=== PATIENT | female | born 1990 | race Caucasian/White ===

== ENCOUNTER 2020-06-30 15:22 | Emergency (ER) | payer BC ==
[~2020-06-30] VITALS: Ht 188 cm; Wt 121.8 kg
--- NOTE | 2020-06-30 15:33 | PHYS DOC ---
General Adult EDM: Chief Complaint: ALLERGIC REACTION HPI: HPI: Patient is a 30-year-old female who presented to ER due to itching and swelling after she ate some sushi today for lunch. Patient has history of allergic to shrimp. Patient did take 50 mg of Benadryl at home before she came. Patient denies any trouble breathing, denies any swelling in her throat. Patient has history of diabetic and hypertension. Patient had run out of her Metformin which she takes 500 mg twice a day, out of of her blood pressure medication, Norvasc 10 mg daily, lisinopril 40 mg daily. Patient has been out of these medications for 1 and half month. Patient denies any chest pain, no abdominal pain, no nausea vomiting. Patient denies any trouble breathing. Review of Systems: Review of Systems: Constitutional: Denies fever or chills Eyes: Denies change in visual acuity HENT: Denies nasal congestion or sore throat Respiratory: Denies cough or shortness of breath Cardiovascular: Denies chest pain or edema GI: Denies abdominal pain, nausea, vomiting, bloody stools or diarrhea : Denies dysuria Musculoskeletal: Denies back pain or joint pain Integument: Positive for itchy and rash. Neurologic: Denies headache, focal weakness or sensory changes Endocrine: Denies polyuria or polydipsia Lymphatic: Denies swollen glands Psychiatric: Denies depression or anxiety Physical Exam: PE: Constitutional: Well developed, well nourished, no acute distress, non-toxic appearance. [] HENT: Normocephalic, atraumatic, bilateral external ears normal, oropharynx m oist, no oral exudates, nose normal. No angioedema Eyes: PERRLA, EOMI, conjunctiva normal, no discharge. [] Neck: Normal range of motion, no tenderness, supple, no stridor. [] Cardiovascular:Heart rate regular rhythm, no murmur [] Lungs & Thorax: Bilateral breath sounds clear to auscultation [] Abdomen: Bowel sounds normal, soft, no tenderness, no masses, no pulsatile masses. [] Skin: Warm, dry, diffuse rash on extremities and trunk area Back: No tenderness, no CVA tenderness. [] Extremities: No tenderness, no cyanosis, no clubbing, ROM intact, no edema. [] Neurologic: Alert and oriented X 3, normal motor function, normal sensory function, no focal deficits noted. [] Psychologic: Affect normal, judgement normal, mood normal. [] Current Patient Data: Labs: Laboratory Tests Test 06/30/20 15:57 Glucose (Fingerstick) 273 mg/dL Current Medications Medications (Trade) Dose Ordered Sig/Alessandra Route PRN Reason Start Time Stop Time Status Last Admin Dose Admin Methylprednisolone Sodium Succinate (SOLU-Medrol 125MG VIAL) 125 mg 1X ONCE IV 06/30/20 15:45 06/30/20 15:46 DC 06/30/20 15:52 Diphenhydramine HCl (Benadryl) 25 mg 1X ONCE IVP 06/30/20 15:45 06/30/20 15:46 DC 06/30/20 15:50 Famotidine (Pepcid Vial) 20 mg 1X ONCE IVP 06/30/20 15:45 06/30/20 15:46 DC 06/30/20 15:54 Sodium Chloride 1,000 ml @ 1,000 mls/hr 1X ONCE IV 06/30/20 15:45 06/30/20 16:44 DC Epinephrine HCl (EPINEPHrine AMPULE) 0.3 mg 1X ONCE IM 06/30/20 15:45 06/30/20 15:46 DC 06/30/20 15:55 Amlodipine Besylate (Norvasc) 10 mg 1X ONCE PO 06/30/20 16:15 06/30/20 16:16 DC 06/30/20 16:33 Lisinopril (Prinivil) 40 mg 1X ONCE PO 06/30/20 16:15 06/30/20 16:16 DC 06/30/20 16:33 EKG: EKG: [] Radiology/Procedures: Radiology/Procedures: [] Heart Score: Risk Factors: Risk Factors: DM, Current or recent (<one month) smoker, HTN, HLP, family history of CAD, obesity. Risk Scores: Score 0 - 3: 2.5% MACE over next 6 weeks - Discharge Home Score 4 - 6: 20.3% MACE over next 6 weeks - Admit for Clinical Observation Score 7 - 10: 72.7% MACE over next 6 weeks - Early Invasive Strategies Course & Med Decision Making: Course & Med Decision Making Pertinent Labs and Imaging studies reviewed. (See chart for details) Patient is a 30-year-old female who was evaluated in ER due to allergic reaction to seafood. Patient was given medication in the ER she felt much better, she wanted to go home. Patient ran out of her blood pressure medication and her diabetic medication. Her blood pressure was elevated in the ER, her blood sugar was elevated as well. Patient was given lisinopril and Norvasc in ER. Patient will be discharged home with a prescription for her blood pressure medication and her diabetic medication. She will need to follow-up with her family physician in a couple day for reevaluation. Patient was instructed not to eat any more seafood in the future. Dragon Disclaimer: Dragon Disclaimer: This electronic medical record was generated, in whole or in part, using a voice recognition dictation system. Departure Departure: Impression: Primary Impression: Allergic reaction Additional Impressions: Hypertension Hyperglycemia Medication refill Disposition: 01 DC HOME SELF CARE/HOMELESS Condition: IMPROVED Referrals: PCP,BARBARA (PCP) Follow up with your doctor in 2 days for reevaluation Patient Instructions: Food Allergy, Hyperglycemia, Hypertension Additional Instructions: Thank you for visiting our Emergency Department. We appreciate you trusting us with your care. If any additional problems come up don't hesitate to return to visit us. Please follow up with your primary care provider so they can plan additional care if needed and know about the problem that you had. If symptoms worsen come back to the Emergency Department. Any concerning symptoms that start such as chest pain, shortness of air, weakness or numbness on one side of the body, running high fevers or any other concerning symptoms return to the ER. Scripts Metformin Hcl (METFORMIN HCL) 500 Mg Tablet 1 TAB PO BID for diabetic, #60 TAB 3 Refills Prov: KARLI GANDARA DO 06/30/20 Famotidine (PEPCID) 20 Mg Tablet 1 TAB PO BID for allergy, #5 TAB Prov: KARLI GANDARA DO 06/30/20 Prednisone (PREDNISONE) 20 Mg Tablet 1 TAB PO DAILY for allergy , #5 TAB Prov: KARLI GANDARA DO 06/30/20 Amlodipine Besylate (NORVASC) 10 Mg Tablet 1 TAB PO DAILY for hypertension, #30 TAB 5 Refills Prov: KARLI GANDARA DO 06/30/20 Lisinopril (LISINOPRIL) 40 Mg Tablet 1 TAB PO DAILY for hypertension, #30 TAB Prov: KARLI GANDARA DO 06/30/20 KARLI GANDARA DO Jun 30, 2020 15:33
[2020-06-30] MEDS ORDERED: methylPREDNISolone SOD SUCC PF 125 MG/2 ML VIAL. IV ONE (15:45)
[2020-06-30] MEDS ORDERED: IV NORMAL SALINE 1,000ML 1,000 ML IV ONE (15:45)
[2020-06-30] MEDS ORDERED: FAMOTIDINE 20 MG/2 ML VIAL IVP ONE (15:45)
[2020-06-30] MEDS ORDERED: diphenhydrAMINE 50 MG/ML VIAL IVP ONE (15:45)
[2020-06-30] MEDS ORDERED: amLODIPine BESYLATE 5 MG TABLET PO ONE (16:15)
[2020-06-30] MEDS ORDERED: LISINOPRIL 10 MG TABLET PO ONE (16:15)
[2020-06-30 17:15] VITALS: BP 209/115
[2020-06-30] MEDS ORDERED: AMLO10TA4 PO (17:15)
[2020-06-30] MEDS ORDERED: LISI40TA6 PO (17:15)
[2020-06-30] MEDS ORDERED: PRED20TA PO (17:15)
[2020-06-30] MEDS ORDERED: METF500T16 PO (17:15)
[2020-06-30] MEDS ORDERED: FAMO-63 PO (17:15)
== END 2020-06-30 17:20 | disposition home or self-care (01) ==
LOC: ER 15:22
DX: T78.40XA Allergy, unspecified, initial encounter (principal); I10 Essential (primary) hypertension; E11.65 Type 2 diabetes mellitus with hyperglycemia; Z76.0 Encounter for issue of repeat prescription; X58.XXXA Exposure to other specified factors, initial encounter
CPT/HCPCS: 82947; 96372; 96374; 96375; 99285; J0171; J1200; J2930; J3490